=== PATIENT | female | born 1990 | race Caucasian/White ===

== ENCOUNTER 2022-12-15 16:09 | Emergency (ER) | payer BC ==
--- OUTSIDE RECORDS SUMMARY | 2022-12-15 16:11 | XMS REPORT | Continuity of Care Document ---
:1990 Author Organization [facility] Address [address] [place] [address] Dr. Mercer [address] [place] [id number] Care Team Providers Name Role Phone TA Attending Clinician Unavailable Paola Tinajero Attending Clinician [phone] AIRAM Attending Clinician Unavailable TA Admitting Clinician Unavailable AIRAM Admitting Clinician Unavailable Payers Payer Name Policy Type Policy Number Effective Date Expiration Date S mel[place] [id number] 2021 00:00:00 [employer]ET[employer] [id number] 2021 2021 00:00:00 00:00:00 Problems This patient has no known problems. Allergies, Adverse Reactions, Alerts This patient has no known allergies or adverse reactions. Social History Smoking Status Start Date Stop Date Source Never Smoker [facility] Medications Ordered Filled Start Stop Current Ordering Indication Dosage Frequency Signature Comments Components Source Medication Medication Date Date Medication? Clinician (SIG) Name Name B12 1ml IM B12 1ml IM No B12 1ml IM [place] Q week Q week -20 Q week Communi 00:00: ty 00 [facility] B12 1ml IM B12 1ml IM 0 No B12 1ml IM [place] Q week Q week - Q week Communi 00:00: ty 00 [facility] B12 1ml IM B12 1ml IM 0 No B12 1ml IM [place] Q week Q week - Q week Communi 00:00: ty 00 [facility] alprazolam alprazolam No alprazolam [place] 0.25 mg 0.25 mg 1-05 0.25 mg da tablet TAKE tablet TAKE 00:00: tablet [facility] ONE (1) ONE (1) 00 TAKE ONE al TABLET(S) TABLET(S) (1) Healt h BY MOUTH BY MOUTH TABLET(S) Ou treac EVERY EIGHT EVERY EIGHT BY MOUTH h TO TWELVE TO TWELVE EVERY Prog cal HOURS HOURS EIGHT TO NEEDED FOR NEEDED FOR TWELVE ANXIETY. ANXIETY. HOURS NEEDED FOR ANXIETY. prednisolon prednisolon No prednisolo [place] e acetate 1 e acetate 1 ne acetate Communi % eye % eye 1 % eye ty drops,suspe drops,suspe drops,susp Hospita nsion nsion ension l INSTILL ONE INSTILL ONE INSTILL Clinics (1) DROP(S) (1) DROP(S) ONE (1) IN EACH EYE IN EACH EYE DROP(S) IN FOUR TIMES FOUR TIMES EACH EYE A DAY FOR 4 A DAY FOR 4 FOUR TIMES WEEKS, THEN WEEKS, THEN A DAY FOR 4 WEEKS, DIRECTED. DIRECTED. THEN DIRECTED. sulfamethox sulfamethox No sulfametho [place] azole 800 azole 800 xazole 800 [facility]i mg-trimetho mg-trimetho mg-trimeth ty prim 160 mg prim 160 mg oprim 160 Hospita tablet TAKE tablet TAKE mg tablet l 1 TABLET 1 TABLET TAKE 1 Clini cs EVERY 12 EVERY 12 TABLET HOURS BY HOURS BY EVERY 12 ORAL ROUTE ORAL ROUTE HOURS BY FOR 10 FOR 10 ORAL ROUTE DAYS. DAYS. FOR 10 DAYS. testosteron testosteron No 137.5mg testostero [place] e 100 mg e 100 mg ne 100 mg [facility] implant implant implant ty pellet Take pellet Take pellet Hospita 137.5 mg by 137.5 mg by Take 137.5 l implantatio implantatio mg by Clinics n route. n route. implantati on route. Xeomin 100 Xeomin 100 No 32unit( Xeomin 100 [place] unit unit s) unit Communi intramuscul intramuscul intramuscu ty ar solution ar solution lar [facility]ita Inject 32 Inject 32 solution l units by units by Inject 32 Cl inics intramuscul intramuscul units by ar route. ar route. intramuscu lar route. alprazolam alprazolam No alprazolam [place] 0.25 mg 0.25 mg 0.25 mg Commun i tablet TAKE tablet TAKE tablet ty ONE (1) ONE (1) TAKE ONE Hospi ta TABLET(S) TABLET(S) (1) l BY MOUTH BY MOUTH TABLET(S) Cl inics EVERY EVERY BY MOUTH TWELVE TWELVE EVERY HOURS HOURS TWELVE NEEDED FOR NEEDED FOR HOURS ANXIETY. ANXIETY. NEEDED FOR ANXIETY. amoxicillin amoxicillin No amoxicilli [place] 875 mg 875 mg n 875 mg [facility]i tablet TAKE tablet TAKE tablet ty 1 TABLET BY 1 TABLET BY TAKE 1 Hospita MOUTH EVERY MOUTH EVERY TABLET BY l 12 HOURS 12 HOURS MOUTH Clinic s EVERY 12 HOURS amoxicillin amoxicillin No amoxicilli [place] [phone] n 875 Communi mg-potassiu mg-potassiu mg-potassi ty m m um Hospita clavulanate clavulanate clavulanat l 125 mg 125 mg e 125 mg Clinics tablet TAKE tablet TAKE tablet 1 TABLET 1 TABLET TAKE 1 EVERY 12 EVERY 12 TABLET HOURS BY HOURS BY EVERY 12 ORAL ROUTE ORAL ROUTE HOURS BY FOR 10 FOR 10 ORAL ROUTE DAYS. DAYS. FOR 10 DAYS. azithromyci azithromyci No azithromyc [place] n 250 mg n 250 mg in 250 mg [facility] tablet TK 2 tablet TK 2 tablet TK ty TS PO ON TS PO ON 2 TS PO ON H ospita DAY 1, THEN DAY 1, THEN DAY 1, l TK 1 T PO D TK 1 T PO D THEN TK 1 Clinics FOR 4 DAYS FOR 4 DAYS T PO D FOR 4 DAYS benzonatate benzonatate No benzonatat [place] 200 mg 200 mg e 200 mg Communi capsule capsule capsule ty TAKE ONE TAKE ONE TAKE ONE [facility]ino (1) (1) (1) l CAPSULE(S) CAPSULE(S) CAPSULE(S) Clinics BY MOUTH BY MOUTH BY MOUTH THREE TIMES THREE TIMES THREE A DAY. A DAY. TIMES A DAY. Besivance Besivance No Besivance [place] 0.6 % eye 0.6 % eye 0.6 % eye Communi drops,suspe drops,suspe drops,susp ty nsion nsion ension Hospita INSTILL ONE INSTILL ONE INSTILL l (1) DROP(S) (1) DROP(S) ONE (1) Clinics IN EACH EYE IN EACH EYE DROP(S) IN FOUR TIMES FOUR TIMES EACH EYE A DAY A DAY FOUR TIMES STARTING 3 STARTING 3 A DAY DAYS BEFORE DAYS BEFORE STARTING 3 SURGERY. SURGERY. DAYS BEFORE SURGERY. dextroamphe dextroamphe No dextroamph [place] tamine-amph tamine-amph etamine-am Communi etamine 10 etamine 10 phetamine ty mg tablet mg tablet 10 mg Hosp mason TAKE ONE TAKE ONE tablet l (1) (1) TAKE ONE Clinics TABLET(S) TABLET(S) (1) BY MOUTH BY MOUTH TABLET(S) EVERY EVERY BY MOUTH MORNING. MORNING. EVERY MORNING. dicyclomine dicyclomine No dicyclomin [place] 20 mg 20 mg e 20 mg Communi tablet TAKE tablet TAKE tablet ty ONE (1) ONE (1) TAKE ONE Hospi ta TABLET(S) TABLET(S) (1) l BY MOUTH BY MOUTH TABLET(S) Cl inics FOUR TIMES FOUR TIMES BY MOUTH A DAY. A DAY. FOUR TIMES A DAY. docusate docusate No docusate [facility] sodium 100 sodium 100 sodium 100 [facility]i mg capsule mg capsule mg capsule ty TAKE ONE TAKE ONE TAKE ONE [facility] (1) (1) (1) l CAPSULE(S) CAPSULE(S) CAPSULE(S) Clinics BY MOUTH BY MOUTH BY MOUTH TWICE A DAY TWICE A DAY TWICE A NEEDED. NEEDED. DAY NEEDED. famciclovir famciclovir No famciclovi [place] 500 mg 500 mg r 500 mg [facility]i tablet TAKE tablet TAKE tablet ty THREE (3) THREE (3) TAKE THREE Hospita TABLET(S) TABLET(S) (3) l BY MOUTH AT BY MOUTH AT TABLET(S) Clinics FIRST SIGN FIRST SIGN BY MOUTH OF FEVER OF FEVER AT FIRST BLISTER. BLISTER. SIGN OF FEVER BLISTER. Guaiatussin Guaiatussin No Guaiatussi [place] AC 10 AC 10 n AC 10 [facility]i mg-100 mg/5 mg-100 mg/5 mg-100 ty mL oral mL oral mg/5 mL Hospit a liquid TAKE liquid TAKE oral l ONE (1) TO ONE (1) TO liquid C linics TWO (2) TWO (2) TAKE ONE TEASPOONFUL TEASPOONFUL (1) TO TWO (S) BY (S) BY (2) MOUTH EVERY MOUTH EVERY TEASPOONFU SIX HOURS SIX HOURS L(S) BY NEEDED NEEDED MOUTH FOR COUGH. FOR COUGH. EVERY SIX HOURS NEEDED FOR COUGH. ketorolac ketorolac No ketorolac [place] 10 mg 10 mg 10 mg [facility]i tablet TAKE tablet TAKE tablet ty ONE (1) ONE (1) TAKE ONE Hospi ta TABLET(S) TABLET(S) (1) l BY MOUTH BY MOUTH TABLET(S) Cl inics EVERY SIX EVERY SIX BY MOUTH HOURS HOURS EVERY SIX NEEDED FOR NEEDED FOR HOURS PAIN. PAIN. NEEDED FOR PAIN. levofloxaci levofloxaci No levofloxac [place] n 750 mg n 750 mg in 750 mg [facility] tablet TAKE tablet TAKE tablet ty ONE (1) ONE (1) TAKE ONE Hospi ta TABLET(S) TABLET(S) (1) l BY MOUTH BY MOUTH TABLET(S) Cl inics ONCE A DAY. ONCE A DAY. BY MOUTH ONCE A DAY. Lotemax SM Lotemax SM No Lotemax SM [place] 0.38 % eye 0.38 % eye 0.38 % eye Communi gel drops gel drops gel drops ty AFTER AFTER AFTER Hospita SURGERY SURGERY SURGERY l INSTILL 1 INSTILL 1 INSTILL 1 Clinics DROP IN DROP IN DROP IN EACH EYE 4 EACH EYE 4 EACH EYE 4 TIMES A DAY TIMES A DAY TIMES A FOR 1ST FOR 1ST DAY FOR MONTH, THEN MONTH, THEN 1ST MONTH, 3 TIMES A 3 TIMES A THEN 3 DAY FOR 1 DAY FOR 1 TIMES A MONTH,THEN MONTH,THEN DAY FOR 1 TWICE A DAY TWICE A DAY MONTH,THEN FOR 1 FOR 1 TWICE A MONTH, THEN MONTH, THEN DAY FOR 1 ONC ONC MONTH, THEN ONC metronidazo metronidazo No metronidaz [place] le 500 mg le 500 mg ole 500 mg Communi tablet TAKE tablet TAKE tablet ty ONE (1) ONE (1) TAKE ONE Hospi ta TABLET(S) TABLET(S) (1) l BY MOUTH BY MOUTH TABLET(S) Cl inics FOUR TIMES FOUR TIMES BY MOUTH A DAY FOR A DAY FOR FOUR TIMES 10 DAYS. 10 DAYS. A DAY FOR 10 DAYS. Mounjaro Mounjaro No Mounjaro [facility] 2.5 mg/0.5 2.5 mg/0.5 2.5 mg/0.5 Communi mL mL mL ty subcutaneou subcutaneou subcutaneo Hospita s pen s pen us pen l injector injector injector Cli nics INJECT 2.5 INJECT 2.5 INJECT 2.5 MG SUB-Q MG SUB-Q MG SUB-Q EVERY WEEK. EVERY WEEK. EVERY WEEK. ofloxacin ofloxacin No ofloxacin [place] 0.3 % eye 0.3 % eye 0.3 % eye Communi drops drops drops ty INSTILL ONE INSTILL ONE INSTILL Hospita (1) DROP(S) (1) DROP(S) ONE (1) l IN EACH EYE IN EACH EYE DROP(S) IN Clinics FOUR TIMES FOUR TIMES EACH EYE A DAY. A DAY. FOUR TIMES A DAY. ondansetron ondansetron No ondansetro [place] 4 mg 4 mg n 4 mg Communi disintegrat disintegrat disintegra ty ing tablet ing tablet ting [facility] DISSOLVE DISSOLVE tablet l ONE (1) ONE (1) DISSOLVE Clini cs TABLET(S) TABLET(S) ONE (1) BY MOUTH BY MOUTH TABLET(S) EVERY SIX EVERY SIX BY MOUTH HOURS HOURS EVERY SIX NEEDED FOR NEEDED FOR HOURS NAUSEA AND NAUSEA AND NEEDED FOR VOMITING. VOMITING. NAUSEA AND VOMITING. Plenvu 140 Plenvu 140 No Plenvu 140 [place] gram-9 gram-9 gram-9 Communi gram-5.2 gram-5.2 gram-5.2 ty gram powder gram powder gram [facility] packs TAKE packs TAKE powder l DIRECTED DIRECTED packs TAKE Clinics BY BY PHYSICIAN PHYSICIAN DIRECTED OFFICE OFFICE BY PHYSICIAN OFFICE prednisolon prednisolon No prednisolo [place] e acetate 1 e acetate 1 ne acetate Communi % eye % eye 1 % eye ty drops,suspe drops,suspe drops,susp Hospita nsion nsion ension l INSTILL ONE INSTILL ONE INSTILL Clinics (1) DROP(S) (1) DROP(S) ONE (1) IN EACH EYE IN EACH EYE DROP(S) IN FOUR TIMES FOUR TIMES EACH EYE A DAY FOR 4 A DAY FOR 4 FOUR TIMES WEEKS, THEN WEEKS, THEN A DAY FOR 4 WEEKS, DIRECTED. DIRECTED. THEN DIRECTED. sulfamethox sulfamethox No sulfametho [place] azole 800 azole 800 xazole 800 [facility]i mg-trimetho mg-trimetho mg-trimeth ty prim 160 mg prim 160 mg oprim 160 [facility]ospita tablet TAKE tablet TAKE mg tablet l 1 TABLET 1 TABLET TAKE 1 Clini cs EVERY 12 EVERY 12 TABLET HOURS BY HOURS BY EVERY 12 ORAL ROUTE ORAL ROUTE HOURS BY FOR 10 FOR 10 ORAL ROUTE DAYS. DAYS. FOR 10 DAYS. testosteron testosteron No 137.5mg testostero [place] e 100 mg e 100 mg ne 100 mg [facility] implant implant implant ty pellet Take pellet Take pellet Hospita 137.5 mg by 137.5 mg by Take 137.5 l implantatio implantatio mg by Clinics n route. n route. implantati on route. Xeomin 100 Xeomin 100 No 36unit( Xeomin 100 [place] unit unit s) unit Communi intramuscul intramuscul intramuscu ty ar solution ar solution lar [facility] Inject 36 Inject 36 solution l units by units by Inject 36 Cl inics intramuscul intramuscul units by ar route. ar route. intramuscu lar route. alprazolam alprazolam No alprazolam [place] 0.25 mg 0.25 mg 0.25 mg Commun i tablet TAKE tablet TAKE tablet ty ONE (1) ONE (1) TAKE ONE Hospi ta TABLET(S) TABLET(S) (1) l BY MOUTH BY MOUTH TABLET(S) Cl inics EVERY EVERY BY MOUTH TWELVE TWELVE EVERY HOURS HOURS TWELVE NEEDED FOR NEEDED FOR HOURS ANXIETY. ANXIETY. NEEDED FOR ANXIETY. amoxicillin amoxicillin No amoxicilli [place] 875 mg 875 mg n 875 mg Communi tablet TAKE tablet TAKE tablet ty 1 TABLET BY 1 TABLET BY TAKE 1 Hospita MOUTH EVERY MOUTH EVERY TABLET BY l 12 HOURS 12 HOURS MOUTH Clinic s EVERY 12 HOURS amoxicillin amoxicillin No amoxicilli [place] 875 875 n 875 Communi mg-potassiu mg-potassiu mg-potassi ty m m um Hospita clavulanate clavulanate clavulanat l 125 mg 125 mg e 125 mg Clinics tablet TAKE tablet TAKE tablet 1 TABLET 1 TABLET TAKE 1 EVERY 12 EVERY 12 TABLET HOURS BY HOURS BY EVERY 12 ORAL ROUTE ORAL ROUTE HOURS BY FOR 10 FOR 10 ORAL ROUTE DAYS. DAYS. FOR 10 DAYS. azithromyci azithromyci No azithromyc [place] n 250 mg n 250 mg in 250 mg [facility] tablet TK 2 tablet TK 2 tablet TK ty TS PO ON TS PO ON 2 TS PO ON [facility]spita DAY 1, THEN DAY 1, THEN DAY 1, l TK 1 T PO D TK 1 T PO D THEN TK 1 Clinics FOR 4 DAYS FOR 4 DAYS T PO D FOR 4 DAYS benzonatate benzonatate No benzonatat [place] 200 mg 200 mg e 200 mg Communi capsule capsule capsule ty TAKE ONE TAKE ONE TAKE ONE [facility] (1) (1) (1) l CAPSULE(S) CAPSULE(S) CAPSULE(S) Clinics BY MOUTH BY MOUTH BY MOUTH THREE TIMES THREE TIMES THREE A DAY. A DAY. TIMES A DAY. Besivance Besivance No Besivance [place] 0.6 % eye 0.6 % eye 0.6 % eye Communi drops,suspe drops,suspe drops,susp ty nsion nsion ension Hospita INSTILL ONE INSTILL ONE INSTILL l (1) DROP(S) (1) DROP(S) ONE (1) Clinics IN EACH EYE IN EACH EYE DROP(S) IN FOUR TIMES FOUR TIMES EACH EYE A DAY A DAY FOUR TIMES STARTING 3 STARTING 3 A DAY DAYS BEFORE DAYS BEFORE STARTING 3 SURGERY. SURGERY. DAYS BEFORE SURGERY. dextroamphe dextroamphe No dextroamph [place] tamine-amph tamine-amph etamine-am Communi etamine 10 etamine 10 phetamine ty mg tablet mg tablet 10 mg [facility]osp mason TAKE ONE TAKE ONE tablet l (1) (1) TAKE ONE Clinics TABLET(S) TABLET(S) (1) BY MOUTH BY MOUTH TABLET(S) EVERY EVERY BY MOUTH MORNING. MORNING. EVERY MORNING. dicyclomine dicyclomine No dicyclomin [place] 20 mg 20 mg e 20 mg [facility]i tablet TAKE tablet TAKE tablet ty ONE (1) ONE (1) TAKE ONE Hospi ta TABLET(S) TABLET(S) (1) l BY MOUTH BY MOUTH TABLET(S) Cl inics FOUR TIMES FOUR TIMES BY MOUTH A DAY. A DAY. FOUR TIMES A DAY. docusate docusate No docusate [facility] sodium 100 sodium 100 sodium 100 [facility]i mg capsule mg capsule mg capsule ty TAKE ONE TAKE ONE TAKE ONE [facility] (1) (1) (1) l CAPSULE(S) CAPSULE(S) CAPSULE(S) Clinics BY MOUTH BY MOUTH BY MOUTH TWICE A DAY TWICE A DAY TWICE A NEEDED. NEEDED. DAY NEEDED. famciclovir famciclovir No famciclovi [place] 500 mg 500 mg r 500 mg [facility] tablet TAKE tablet TAKE tablet ty THREE (3) THREE (3) TAKE THREE Hospita TABLET(S) TABLET(S) (3) l BY MOUTH AT BY MOUTH AT TABLET(S) Clinics FIRST SIGN FIRST SIGN BY MOUTH OF FEVER OF FEVER AT FIRST BLISTER. BLISTER. SIGN OF FEVER BLISTER. Guaiatussin Guaiatussin No Guaiatussi [place] AC 10 AC 10 n AC 10 [facility]i mg-100 mg/5 mg-100 mg/5 mg-100 ty mL oral mL oral mg/5 mL Hospit a liquid TAKE liquid TAKE oral l ONE (1) TO ONE (1) TO liquid C linics TWO (2) TWO (2) TAKE ONE TEASPOONFUL TEASPOONFUL (1) TO TWO (S) BY (S) BY (2) MOUTH EVERY MOUTH EVERY TEASPOONFU SIX HOURS SIX HOURS L(S) BY NEEDED NEEDED MOUTH FOR COUGH. FOR COUGH. EVERY SIX HOURS NEEDED FOR COUGH. ketorolac ketorolac No ketorolac [place] 10 mg 10 mg 10 mg [facility] tablet TAKE tablet TAKE tablet ty ONE (1) ONE (1) TAKE ONE Hospi ta TABLET(S) TABLET(S) (1) l BY MOUTH BY MOUTH TABLET(S) Cl inics EVERY SIX EVERY SIX BY MOUTH HOURS HOURS EVERY SIX NEEDED FOR NEEDED FOR HOURS PAIN. PAIN. NEEDED FOR PAIN. levofloxaci levofloxaci No levofloxac [place] n 750 mg n 750 mg in 750 mg [facility] tablet TAKE tablet TAKE tablet ty ONE (1) ONE (1) TAKE ONE Hospi ta TABLET(S) TABLET(S) (1) l BY MOUTH BY MOUTH TABLET(S) Cl inics ONCE A DAY. ONCE A DAY. BY MOUTH ONCE A DAY. Lotemax SM Lotemax SM No Lotemax SM [place] 0.38 % eye 0.38 % eye 0.38 % eye Communi gel drops gel drops gel drops ty AFTER AFTER AFTER Hospita SURGERY SURGERY SURGERY l INSTILL 1 INSTILL 1 INSTILL 1 Clinics DROP IN DROP IN DROP IN EACH EYE 4 EACH EYE 4 EACH EYE 4 TIMES A DAY TIMES A DAY TIMES A FOR 1ST FOR 1ST DAY FOR MONTH, THEN MONTH, THEN 1ST MONTH, 3 TIMES A 3 TIMES A THEN 3 DAY FOR 1 DAY FOR 1 TIMES A MONTH,THEN MONTH,THEN DAY FOR 1 TWICE A DAY TWICE A DAY MONTH,THEN FOR 1 FOR 1 TWICE A MONTH, THEN MONTH, THEN DAY FOR 1 ONC ONC MONTH, THEN ONC metronidazo metronidazo No metronidaz [place] le 500 mg le 500 mg ole 500 mg Communi tablet TAKE tablet TAKE tablet ty ONE (1) ONE (1) TAKE ONE Hospi ta TABLET(S) TABLET(S) (1) l BY MOUTH BY MOUTH TABLET(S) Cl inics FOUR TIMES FOUR TIMES BY MOUTH A DAY FOR A DAY FOR FOUR TIMES 10 DAYS. 10 DAYS. A DAY FOR 10 DAYS. Mounjaro Mounjaro No Mounjaro [facility] 2.5 mg/0.5 2.5 mg/0.5 2.5 mg/0.5 Communi mL mL mL ty subcutaneou subcutaneou subcutaneo Hospita s pen s pen us pen l injector injector injector Cli nics INJECT 2.5 INJECT 2.5 INJECT 2.5 MG SUB-Q MG SUB-Q MG SUB-Q EVERY WEEK. EVERY WEEK. EVERY WEEK. ofloxacin ofloxacin No ofloxacin [place] 0.3 % eye 0.3 % eye 0.3 % eye Communi drops drops drops ty INSTILL ONE INSTILL ONE INSTILL Hospita (1) DROP(S) (1) DROP(S) ONE (1) l IN EACH EYE IN EACH EYE DROP(S) IN Clinics FOUR TIMES FOUR TIMES EACH EYE A DAY. A DAY. FOUR TIMES A DAY. ondansetron ondansetron No ondansetro [place] 4 mg 4 mg n 4 mg Communi disintegrat disintegrat disintegra ty ing tablet ing tablet ting [facility] DISSOLVE DISSOLVE tablet l ONE (1) ONE (1) DISSOLVE Clini cs TABLET(S) TABLET(S) ONE (1) BY MOUTH BY MOUTH TABLET(S) EVERY SIX EVERY SIX BY MOUTH HOURS HOURS EVERY SIX NEEDED FOR NEEDED FOR HOURS NAUSEA AND NAUSEA AND NEEDED FOR VOMITING. VOMITING. NAUSEA AND VOMITING. Plenvu 140 Plenvu 140 No Plenvu 140 [place] gram-9 gram-9 gram-9 Communi gram-5.2 gram-5.2 gram-5.2 ty gram powder gram powder gram [facility] packs TAKE packs TAKE powder l DIRECTED DIRECTED packs TAKE Clinics BY BY PHYSICIAN PHYSICIAN DIRECTED OFFICE OFFICE BY PHYSICIAN OFFICE prednisolon prednisolon No prednisolo [place] e acetate 1 e acetate 1 ne acetate Communi % eye % eye 1 % eye ty drops,suspe drops,suspe drops,susp Hospita nsion nsion ension l INSTILL ONE INSTILL ONE INSTILL Clinics (1) DROP(S) (1) DROP(S) ONE (1) IN EACH EYE IN EACH EYE DROP(S) IN FOUR TIMES FOUR TIMES EACH EYE A DAY FOR 4 A DAY FOR 4 FOUR TIMES WEEKS, THEN WEEKS, THEN A DAY FOR 4 WEEKS, DIRECTED. DIRECTED. THEN DIRECTED. sulfamethox sulfamethox No sulfametho [place] azole 800 azole 800 xazole 800 [facility]i mg-trimetho mg-trimetho mg-trimeth ty prim 160 mg prim 160 mg oprim 160 [facility]ospita tablet TAKE tablet TAKE mg tablet l 1 TABLET 1 TABLET TAKE 1 Clini cs EVERY 12 EVERY 12 TABLET HOURS BY HOURS BY EVERY 12 ORAL ROUTE ORAL ROUTE HOURS BY FOR 10 FOR 10 ORAL ROUTE DAYS. DAYS. FOR 10 DAYS. testosteron testosteron No 137.5mg testostero [place] e 100 mg e 100 mg ne 100 mg [facility] implant implant implant ty pellet Take pellet Take pellet Hospita 137.5 mg by 137.5 mg by Take 137.5 l implantatio implantatio mg by Clinics n route. n route. implantati on route. Xeomin 100 Xeomin 100 No 36unit( Xeomin 100 [place] unit unit s) unit Communi intramuscul intramuscul intramuscu ty ar solution ar solution lar [facility] Inject 36 Inject 36 solution l units by units by Inject 36 Cl inics intramuscul intramuscul units by ar route. ar route. intramuscu lar route. alprazolam alprazolam No alprazolam [place] 0.25 mg 0.25 mg 0.25 mg Commun i tablet TAKE tablet TAKE tablet ty ONE (1) ONE (1) TAKE ONE Hos[facility] ta TABLET(S) TABLET(S) (1) l BY MOUTH BY MOUTH TABLET(S) Cl inics EVERY EVERY BY MOUTH TWELVE TWELVE EVERY HOURS HOURS TWELVE NEEDED FOR NEEDED FOR HOURS ANXIETY. ANXIETY. NEEDED FOR ANXIETY. amoxicillin amoxicillin No amoxicilli [place] 875 mg 875 mg n 875 mg [facility]i tablet TAKE tablet TAKE tablet ty 1 TABLET BY 1 TABLET BY TAKE 1 Hospita MOUTH EVERY MOUTH EVERY TABLET BY l 12 HOURS 12 HOURS MOUTH Clinic s EVERY 12 HOURS amoxicillin amoxicillin No amoxicilli [place] 875 875 n 875 Communi mg-potassiu mg-potassiu mg-potassi ty m m um Hospita clavulanate clavulanate clavulanat l 125 mg 125 mg e 125 mg Clinics tablet TAKE tablet TAKE tablet 1 TABLET 1 TABLET TAKE 1 EVERY 12 EVERY 12 TABLET HOURS BY HOURS BY EVERY 12 ORAL ROUTE ORAL ROUTE HOURS BY FOR 10 FOR 10 ORAL ROUTE DAYS. DAYS. FOR 10 DAYS. azithromyci azithromyci No azithromyc [place] n 250 mg n 250 mg in 250 mg [facility] tablet TK 2 tablet TK 2 tablet TK ty TS PO ON TS PO ON 2 TS PO ON [facility] DAY 1, THEN DAY 1, THEN DAY 1, l TK 1 T PO D TK 1 T PO D THEN TK 1 Clinics FOR 4 DAYS FOR 4 DAYS T PO D FOR 4 DAYS benzonatate benzonatate No benzonatat [place] 200 mg 200 mg e 200 mg [facility]i capsule capsule capsule ty TAKE ONE TAKE ONE TAKE ONE [facility] (1) (1) (1) l CAPSULE(S) CAPSULE(S) CAPSULE(S) Clinics BY MOUTH BY MOUTH BY MOUTH THREE TIMES THREE TIMES THREE A DAY. A DAY. TIMES A DAY. Besivance Besivance No Besivance [place] 0.6 % eye 0.6 % eye 0.6 % eye Communi drops,suspe drops,suspe drops,susp ty nsion nsion ension Hospita INSTILL ONE INSTILL ONE INSTILL l (1) DROP(S) (1) DROP(S) ONE (1) Clinics IN EACH EYE IN EACH EYE DROP(S) IN FOUR TIMES FOUR TIMES EACH EYE A DAY A DAY FOUR TIMES STARTING 3 STARTING 3 A DAY DAYS BEFORE DAYS BEFORE STARTING 3 SURGERY. SURGERY. DAYS BEFORE SURGERY. dextroamphe dextroamphe No dextroamph [place] tamine-amph tamine-amph etamine-am Communi etamine 10 etamine 10 phetamine ty mg tablet mg tablet 10 mg [facility] TAKE ONE TAKE ONE tablet l (1) (1) TAKE ONE Clinics TABLET(S) TABLET(S) (1) BY MOUTH BY MOUTH TABLET(S) EVERY EVERY BY MOUTH MORNING. MORNING. EVERY MORNING. dicyclomine dicyclomine No dicyclomin [place] 20 mg 20 mg e 20 mg [facility]i tablet TAKE tablet TAKE tablet ty ONE (1) ONE (1) TAKE ONE Hospi ta TABLET(S) TABLET(S) (1) l BY MOUTH BY MOUTH TABLET(S) Cl inics FOUR TIMES FOUR TIMES BY MOUTH A DAY. A DAY. FOUR TIMES A DAY. docusate docusate No docusate [facility] sodium 100 sodium 100 sodium 100 [facility]i mg capsule mg capsule mg capsule ty TAKE ONE TAKE ONE TAKE ONE [facility] (1) (1) (1) l CAPSULE(S) CAPSULE(S) CAPSULE(S) Clinics BY MOUTH BY MOUTH BY MOUTH TWICE A DAY TWICE A DAY TWICE A NEEDED. NEEDED. DAY NEEDED. famciclovir famciclovir No famciclovi [place] 500 mg 500 mg r 500 mg Communi tablet TAKE tablet TAKE tablet ty THREE (3) THREE (3) TAKE THREE Hospita TABLET(S) TABLET(S) (3) l BY MOUTH AT BY MOUTH AT TABLET(S) Clinics FIRST SIGN FIRST SIGN BY MOUTH OF FEVER OF FEVER AT FIRST BLISTER. BLISTER. SIGN OF FEVER BLISTER. Guaiatussin Guaiatussin No Guaiatussi [place] AC 10 AC 10 n AC 10 Communi mg-100 mg/5 mg-100 mg/5 mg-100 ty mL oral mL oral mg/5 mL Hospit a liquid TAKE liquid TAKE oral l ONE (1) TO ONE (1) TO liquid C linics TWO (2) TWO (2) TAKE ONE TEASPOONFUL TEASPOONFUL (1) TO TWO (S) BY (S) BY (2) MOUTH EVERY MOUTH EVERY TEASPOONFU SIX HOURS SIX HOURS L(S) BY NEEDED NEEDED MOUTH FOR COUGH. FOR COUGH. EVERY SIX HOURS NEEDED FOR COUGH. ketorolac ketorolac No ketorolac [place] 10 mg 10 mg 10 mg [facility]i tablet TAKE tablet TAKE tablet ty ONE (1) ONE (1) TAKE ONE Hospi ta TABLET(S) TABLET(S) (1) l BY MOUTH BY MOUTH TABLET(S) Cl inics EVERY SIX EVERY SIX BY MOUTH HOURS HOURS EVERY SIX NEEDED FOR NEEDED FOR HOURS PAIN. PAIN. NEEDED FOR PAIN. levofloxaci levofloxaci No levofloxac [place] n 750 mg n 750 mg in 750 mg [facility] tablet TAKE tablet TAKE tablet ty ONE (1) ONE (1) TAKE ONE Hospi ta TABLET(S) TABLET(S) (1) l BY MOUTH BY MOUTH TABLET(S) Cl inics ONCE A DAY. ONCE A DAY. BY MOUTH ONCE A DAY. Lotemax SM Lotemax SM No Lotemax SM [place] 0.38 % eye 0.38 % eye 0.38 % eye Communi gel drops gel drops gel drops ty AFTER AFTER AFTER Hospita SURGERY SURGERY SURGERY l INSTILL 1 INSTILL 1 INSTILL 1 Clinics DROP IN DROP IN DROP IN EACH EYE 4 EACH EYE 4 EACH EYE 4 TIMES A DAY TIMES A DAY TIMES A FOR 1ST FOR 1ST DAY FOR MONTH, THEN MONTH, THEN 1ST MONTH, 3 TIMES A 3 TIMES A THEN 3 DAY FOR 1 DAY FOR 1 TIMES A MONTH,THEN MONTH,THEN DAY FOR 1 TWICE A DAY TWICE A DAY MONTH,THEN FOR 1 FOR 1 TWICE A MONTH, THEN MONTH, THEN DAY FOR 1 ONC ONC MONTH, THEN ONC metronidazo metronidazo No metronidaz [place] le 500 mg le 500 mg ole 500 mg Communi tablet TAKE tablet TAKE tablet ty ONE (1) ONE (1) TAKE ONE Hospi ta TABLET(S) TABLET(S) (1) l BY MOUTH BY MOUTH TABLET(S) Cl inics FOUR TIMES FOUR TIMES BY MOUTH A DAY FOR A DAY FOR FOUR TIMES 10 DAYS. 10 DAYS. A DAY FOR 10 DAYS. ofloxacin ofloxacin No ofloxacin [place] 0.3 % eye 0.3 % eye 0.3 % eye [facility] drops drops drops ty INSTILL ONE INSTILL ONE INSTILL Hospita (1) DROP(S) (1) DROP(S) ONE (1) l IN EACH EYE IN EACH EYE DROP(S) IN Clinics FOUR TIMES FOUR TIMES EACH EYE A DAY. A DAY. FOUR TIMES A DAY. ondansetron ondansetron No ondansetro [place] 4 mg 4 mg n 4 mg Communi disintegrat disintegrat disintegra ty ing tablet ing tablet ting Hos al[facility]ino DISSOLVE DISSOLVE tablet l ONE (1) ONE (1) DISSOLVE Clini cs TABLET(S) TABLET(S) ONE (1) BY MOUTH BY MOUTH TABLET(S) EVERY SIX EVERY SIX BY MOUTH HOURS HOURS EVERY SIX NEEDED FOR NEEDED FOR HOURS NAUSEA AND NAUSEA AND NEEDED FOR VOMITING. VOMITING. NAUSEA AND VOMITING. Plenvu 140 Plenvu 140 No Plenvu 140 [place] gram-9 gram-9 gram-9 Communi gram-5.2 gram-5.2 gram-5.2 ty gram powder gram powder gram H ospita packs TAKE packs TAKE powder l DIRECTED DIRECTED packs TAKE Clinics BY BY PHYSICIAN PHYSICIAN DIRECTED OFFICE OFFICE BY PHYSICIAN OFFICE Vital Signs Vital Name Observation Time Observation Value Comments Source BP Diastolic 2020-12-13 00:00:00 89 mm[Hg] [facility] Height 2020-12-13 00:00:00 63 [in_i] [facility] BMI (Body Mass 2020-12-13 00:00:00 29.9 kg/m2 [facility] 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 Taoist Index) Health Outreach Program BP Systolic 2020-12-13 00:00:00 132 mm[Hg] [facility] Body Weight 2020-12-13 00:00:00 169 [lb_av] [facility] BP Diastolic 2020-11-07 00:00:00 75 mm[Hg] [facility] Height 2020-11-07 00:00:00 63 [in_i] [facility] BMI (Body Mass 2020-11-07 00:00:00 31.2 kg/m2 [facility] 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 Taoist Index) Health Outreach Program BP Systolic 2020-11-07 00:00:00 109 mm[Hg] [facility] Body Weight 2020-11-07 00:00:00 176 [lb_av] [facility] Procedures Procedure Date / Time Performed Performing Clinician [facility] Procedure Roll [facility] Encounters Start End Encounter Admission Attending Care Care Encounter Source Date/Time Date/Time Type Type Clinicians Facility Department ID 2022-12-12 2022-12-12 [facility] [place] [id number] [place] 00:00:00 00:00:00 [place], [facility] Comm uni MSN, INSURANCE JOB TITLES, Hospital - ty MODEL DRESSER-C: [address] [place] [facility] [address] [facility], Clinic s [address], [place] [address], [place], [place] MSN, MODEL DRESSER-C [id number] , Ph. 2022-11-15 2022-11-15 Outpatient SISSON_C [facility] 2022 [place] 00:00:00 00:00:00 [id number] [facility] i [facility] 2022-11-15 2022-11-15 [facility] [place] 13 [place] 00:00:00 00:00:00 Lior [facility] Comm uni MSN, INSURANCE JOB TITLES, Hospital - ty MODEL DRESSER-C: [address] [place] [facility] [address], [place] [address], [place], [place] MSN, MODEL DRESSER-C [id number] , Ph. 2022-11-03 2022-11-03 Outpatient SISSON_[facility] 2022 [place] 00:00:00 00:00:00 [id number] Commun i ty H[facility] 2022-09-10 2022-09-10 Outpatient SISSON_[facility] [id number] [place] 00:00:00 00:00:00 [id number] Commun i ty Hospita [facility] 2022-09-10 2022-09-10 [facility] [place] [id number] [place] 00:00:00 00:00:00 Lior [facility] Comm uni MSN, INSURANCE JOB TITLES, Hospital - ty MODEL DRESSER-C: [address] [place] [facility]. [facility], Clinic s [address], [place] [address], [place] MSN, MODEL DRESSER-C [id number] , Ph. 2022-06-26 2022-06-26 Outpatient SISSON_C [facility] 2021 [place] 00:00:00 00:00:00 [id number] [facility] i ty Hosp[facility] Clinics 2022-06-26 2022-06-26 Outpatient Lior [facility] [id number] 00:00:00 00:00:00 [place] [id number] 2022-04-09 2022-04-09 Outpatient LIOR_C [facility] 2021 [place] 01:26:00 01:26:00 [id number] [facility] i ty [facility] Clinics 2022-04-09 2022-04-09 Outpatient Lior [facility] [id number] 00:00:00 00:00:00 [place] [id number] 2022-02-26 2022-02-26 Outpatient LIOR_C [facility] 2021 [place] 03:33:00 03:33:00 [id number] Commun i ty Hosp[facility] Clinics 2022-02-20 2022-02-20 Outpatient LIOR_C [facility] 2021 [place] 06:02:00 06:02:00 0420 Commun i ty Hosp[facility] Clinics 2022-02-20 2022-02-20 Outpatient Lior [facility] [id number] 00:00:00 00:00:00 [place] [id number] 2021-11-16 2021-11-16 Outpatient TREVOR_SUHA [facility] [id number] [place] 11:46:00 11:46:00 SSA [id number] da [facility] 2021-03-22 2021-03-22 Outpatient SISSON_C [facility] 2020 [place] 02:30:00 02:30:00 0520 Commun i ty Hospita [facility] Clinics 2021-03-22 2021-03-22 Outpatient Lior [facility] [id number] 00:00:00 00:00:00 [place] [id number] 2020-12-13 2020-12-13 Outpatient LISTER_MELI [facility] ME[facility] [id number] [place] 02:26:00 02:26:00 SSA [id number] [facility] 2020-12-13 2020-12-13 Kirsten URIOSTEGUI [place] - [id number] [place] 00:00:00 00:00:00 Katrina Mendoza, Taoist Ep[place] p RIGHT OF [address] AGENT: [address], [place] [phone] Progr am , Ph. 2020-11-14 2020-11-14 Outpatient LISTER_MELI MEHOP MEHOP [id number] [place] 11:47:00 11:47:00 SSA [id number] [facility] 2020-11-07 2020-11-07 Outpatient LISTER_MELI MEHOP MEHOP 112 [place] 04:46:00 04:46:00 SSA [id number] [facility] 2020-11-07 2020-11-07 Kirsten URIOSTEGUI [place] - [id number] [place] 00:00:00 00:00:00 Katrina Mendoza, Taoist Ep[place] p [address] AGENT: [address], [place] [phone] Progr am , Ph. 2020-11-05 2020-11-05 Outpatient LISTER_MELI MEHOP MEHOP 112 [place] 12:37:00 12:37:00 SSA [id number] [facility] 2020-10-30 2020-10-30 Outpatient LISTER_MELI MEHOP MEHOP [id number] [place] 11:36:00 11:36:00 SSA [id number] [facility] Results This patient has no known results.
[2022-12-15 16:33] LABS: Urine Blood Negative (Negative); Urine Glucose Negative (Negative); Urine Protein Negative (Negative); Urine pH 6.5 (5.0-7.0)
[2022-12-15] MEDS ORDERED: NA CHLORIDE 0.9% 0 ML ONE (16:56)
[2022-12-15] MEDS ORDERED: KETOROLAC 30 MG/ML INJ ONE (16:56)
[2022-12-15 17:10] LABS: Absolute Lymphocytes (CBC) 2.2 K/uL (0.7-4.9); Hematocrit 40.4 % (36.0-45.0); Lymphocytes % 35.1 % (15.3-44.8); MCV 91.3 fL (80-100); MPV 7.4 fL (7.6-11.3); RBC Red Blood Cell Count 4.43 M/uL (3.86-4.86)
[2022-12-15 17:18] LABS: Urine Bacteria <20 /HPF (<20); Urine RBC <5 /HPF (None Seen)
[2022-12-15 17:28] LABS: Albumin 4.3 g/dL (3.4-5.0); Bilirubin Total 0.6 mg/dL (0.2-1.0); Potassium 3.7 mmol/L (3.5-5.1); Protein, Total 7.3 g/dL (6.4-8.2)
--- NOTE | 2022-12-15 17:39 | RAD REPORT ---
EXAM DESCRIPTION: CTAbdomen Pelvis W Contrast - 12/15/2022 5:31 pm CLINICAL HISTORY: Abdominal pain. ABD PAIN COMPARISON: No comparisons TECHNIQUE: Biphasic CT imaging of the abdomen and pelvis was performed with 100 ml non-ionic IV cont rast. All CT scans are performed using dose optimization technique as appropriate and may include automated exposure control or mA/KV adjustment according to patient size. FINDINGS: The lung bases are clear. The liver, spleen, pancreas, adrenal glands and kidneys are within normal limits. No bowel obstruction, free air, free fluid or abscess. Significant retained stool throughout the colo n. Mild sigmoid diverticulosis coli without diverticulitis. The appendix is normal. No evidence of s ignificant lymphadenopathy. No suspicious bony findings. IUD is present in the uterus. IMPRESSION: No acute intra-abdominal or pelvic finding. Significant stool is retained throughout the colon. Mild sigmoid diverticulosis coli without divertic ulitis.
[2022-12-15] MEDS ORDERED: NA CHLORIDE 0.9% 1,000 ML ONE (18:02)
--- NOTE | 2022-12-15 18:35 | RAD REPORT ---
EXAM DESCRIPTION: US - Transvaginal Study Probe - 12/15/2022 6:29 pm CLINICAL HISTORY: ABD PAIN Pelvic pain. COMPARISON: No comparisons FINDINGS: The uterus is normal in size, shape and echotexture. The uterus measures 6.7 x 4.1 x 2.8 c m IUD is seen in the fundal endometrium. Both ovaries are normal in size, shape and echotexture. The right ovary measures 3.5 x 2.6 cm. The left ovary measures 3.1 x 2.5 cm. No ovarian or parovarian lesions. No adnexal masses. Normal Doppler blood flow was demonstrated to both ovaries. No significant pelvic ascites. IMPRESSION: IUD is in the endometrium fundal region, appropriate placement.
--- NOTE | 2022-12-15 18:49 | ER ---
Nurse's Notes [facility] Name: Winnie Guevara Age: 32 yrs Sex: Female : 1990 Arrival Date: 12/15/2022 Time: 16:19 Bed 13 Private MD: Diagnosis: Constipation;Diverticulosis of large intestine without perforation or abscess without bleeding;Lower abdominal pain, unspecified Presentation: 12/15 16:30 Chief complaint: Patient states: RLQ abd pain. Ebola Screen: Patient denies travel to [facility] an Ebola-affected area in the 21 days before illness onset. Initial Sepsis Screen: Does the patient meet any 2 criteria? No. Patient's initial sepsis screen is negative. Does the patient have a suspected source of infection? Yes: Acute abdominal pain. Risk Assessment: Do you want to hurt yourself or someone else? Patient reports no desire to harm self or others. 16:30 Acuity: ANGELO 3 ll1 16:30 Method Of Arrival: Ambulatory [facility] Historical: - Allergies: 16:30 No Known Allergies; eh3 - Immunization history:: Adult Immunizations up to date. - Social history:: Smoking status: Patient denies any tobacco usage or history of. Patient uses alcohol, weekly. Screenin:30 [facility] ED Fall Risk Assessment (Adult) Score/Fall Risk Level 0 - 2 = Low Risk. Abuse eh3 screen: Denies threats or abuse. Denies injuries from another. Nutritional screening: No deficits noted. Tuberculosis screening: No symptoms or risk factors identified. Assessment: 16:30 General: Appears in no apparent distress. uncomfortable, Behavior is calm, cooperative, eh3 appropriate for age. Pain: Complains of pain in right lower quadrant Pain began 1 day ago. Neuro: Level of Consciousness is awake, alert, obeys commands, Oriented to person, place, time, situation. Cardiovascular: Capillary refill < 3 seconds Patient's skin is warm and dry. Respiratory: Airway is patent Respiratory effort is even, unlabored, Respiratory pattern is regular, symmetrical. GI: Abdomen is round non-distended, Bowel sounds present X 4 quads. Abd is soft X 4 quads Abdomen is tender to palpation in right lower quadrant. : No signs and/or symptoms were reported regarding the genitourinary system. EENT: No signs and/or symptoms were reported regarding the EENT system. Derm: No signs and/or symptoms reported regarding the dermatologic system. Skin is dry, Skin is pale, Skin temperature is warm. Musculoskeletal: Circulation, motion, and sensation intact. Range of motion: intact in all extremities. Vital Signs: 16:30 BP 121 / 90; Pulse 72; Resp 18; Pulse Ox 100% on R/A; eh3 17:00 BP 114 / 70; Pulse 72; Resp 18; Pulse Ox 100% on R/A; 3 ED Course: 16:19 Patient arrived in ED. eh3 16:20 Becky Silva FNP-C is PHCP. snw 16:20 Frank Jones MD is Attending Physician. snw 16:30 Patient has correct armband on for positive identification. Bed in low position. Call 3 light in reach. Side rails up X2. Adult w/ patient. Pulse ox on. NIBP on. Door closed. Noise minimized. Lights dimmed. 16:40 Simran Anton, RN is Primary Nurse. 3 17:02 CBC with Diff Sent. 6 17:02 CMP Sent. bc6 17:02 Lipase Sent. bc6 17:02 Urine Microscopic Only Sent. bc6 17:03 Inserted saline lock: 20 gauge in right antecubital area, using aseptic technique. bc6 18:30 Triage completed. 1 Administered Medications: 14:00 Drug: TORadol - (ketorolac) 15 mg Route: IVP; Site: right antecubital; 3 17:00 Drug: NS 0.9% 1000 ml Route: IV; Rate: 1 bolus; Site: right antecubital; 3 Outcome: 18:48 Discharge ordered by . snw 19:03 Patient left the ED. 3 Signatures: Becky Silva FNP-C [employer]Cs[employer] Emelia Wellington RN RN 1 Simran Anton, SOPHIE RN 3 Stephanie Ochoa [facility] Corrections: (The following items were deleted from the chart) 17:45 17:44 Allergies: No Known Allergies; 3 3 17:45 17:44 Immunization history: Adult Immunizations up to date, 3 3 17:45 17:44 Social history: Smoking status: Patient denies any tobacco usage or history of. 3 Patient uses alcohol, weekly. 3
--- NOTE | 2022-12-15 18:49 | EDPHYS ---
Physician Documentation [facility] Name: Winnie Guevara Age: 32 yrs Sex: Female : 1990 Arrival Date: 12/15/2022 Time: 16:19 Bed 13 Private MD: ED Physician Frank Jones HPI: 12/15 16:32 This 32 yrs old Female presents to ER via Unassigned with complaints of abdominal pain, snw syncope. 16:32 The patient presents with abdominal pain right lower quadrant. Onset: The snw symptoms/episode began/occurred acutely. The symptoms do not radiate. Associated signs and symptoms: Pertinent positives: syncope x 1, near syncope and diaphoresis x 1. The symptoms are described as steady. Severity of pain: At its worst the pain was severe in the emergency department the pain has improved moderately. The patient has not experienced similar symptoms in the past. The patient has not recently seen a physician. recent 17 pound wt loss. Historical: - Allergies: 16:30 No Known Allergies; eh3 - Immunization history:: Adult Immunizations up to date. - Social history:: Smoking status: Patient denies any tobacco usage or history of. Patient uses alcohol, weekly. ROS: 16:34 Constitutional: Negative for fever, chills, and weight loss, Eyes: Negative for injury, snw pain, redness, and discharge, ENT: Negative for injury, pain, and discharge, Neck: Negative for injury, pain, and swelling, Cardiovascular: Negative for chest pain, palpitations, and edema, Respiratory: Negative for shortness of breath, cough, wheezing, and pleuritic chest pain, Back: Negative for injury and pain, : Negative for injury, bleeding, discharge, and swelling, MS/Extremity: Negative for injury and deformity, Skin: Negative for injury, rash, and discoloration. 16:34 Abdomen/GI: Positive for abdominal pain, of the right lower quadrant. 16:34 Neuro: Positive for syncope, near syncope. Exam: 16:34 Constitutional: This is a well developed, well nourished patient who is awake, alert, snw and in no acute distress. Head/Face: Normocephalic, atraumatic. Eyes: Pupils equal round and reactive to light, extra-ocular motions intact. Lids and lashes normal. Conjunctiva and sclera are non-icteric and not injected. Cornea within normal limits. Periorbital areas with no swelling, redness, or edema. ENT: Nares patent. No nasal discharge, no septal abnormalities noted. Tympanic membranes are normal and external auditory canals are clear. Oropharynx with no redness, swelling, or masses, exudates, or evidence of obstruction, uvula midline. Mucous membranes moist. Neck: Trachea midline, no thyromegaly or masses palpated, and no cervical lymphadenopathy. Supple, full range of motion without nuchal rigidity, or vertebral point tenderness. No Meningismus. Chest/axilla: Normal chest wall appearance and motion. Nontender with no deformity. No lesions are appreciated. Cardiovascular: Regular rate and rhythm with a normal S1 and S2. No gallops, murmurs, or rubs. Normal PMI, no JVD. No pulse deficits. Respiratory: Lungs have equal breath sounds bilaterally, clear to auscultation and percussion. No rales, rhonchi or wheezes noted. No increased work of breathing, no retractions or nasal flaring. Back: No spinal tenderness. No costovertebral tenderness. Full range of motion. Skin: Warm, dry with normal turgor. Normal color with no rashes, no lesions, and no evidence of cellulitis. MS/ Extremity: Pulses equal, no cyanosis. Neurovascular intact. Full, normal range of motion. Neuro: Awake and alert, GCS 15, oriented to person, place, time, and situation. Cranial nerves II-XII grossly intact. Motor strength 5/5 in all extremities. Sensory grossly intact. Cerebellar exam normal. Normal gait. Psych: Awake, alert, with orientation to person, place and time. Behavior, mood, and affect are within normal limits. 16:34 Abdomen/GI: Inspection: abdomen appears normal, Bowel sounds: normal, Palpation: moderate abdominal tenderness, in the right lower quadrant, Indicators: McBurney's point is tender. Vital Signs: 16:30 BP 121 / 90; Pulse 72; Resp 18; Pulse Ox 100% on R/A; eh3 17:00 BP 114 / 70; Pulse 72; Resp 18; Pulse Ox 100% on R/A; eh3 MDM: 16:24 Patient medically screened. oliver 17:56 Differential diagnosis: appendicitis, diverticulitis, gastritis. Data reviewed: vital snw signs, nurses notes. Care significantly affected by the following chronic conditions: diverticulitis. Counseling: I had a detailed discussion with the patient and/or guardian regarding: the historical points, exam findings, and any diagnostic results supporting the discharge/admit diagnosis, lab results, radiology results, the need for outpatient follow up, to return to the emergency department if symptoms worsen or persist or if there are any questions or concerns that arise at home. Special discussion: Based on the patient's Hx, exam, and Dx evaluation, there is no indication for emergent surgery or inpatient Tx. It is understood by the patient/guardian that if the Sx's persist or worsen they need to return immediately for re-evaluation. Based on the history and exam findings, there is no indication for further emergent testing or inpatient evaluation. I discussed with the patient/guardian the need to see the primary care provider for further evaluation of the symptoms. 12/15 16:30 Order name: CBC with Diff [facility] 12/15 16:30 Order name: CMP [facility] 12/15 16:30 Order name: Lipase [facility] 12/15 16:30 Order name: Urine Microscopic Only [facility] 12/15 16:34 Order name: Urine Dipstick-Ancillary; Complete Time: 16:38 EDNC 12/15 16:37 Order name: Urine --Ancillary (enter results) 12/15 16:30 Order name: CT Abd/Pelvis - IV Contrast Only [facility] 12/15 17:13 Order name: CBC with Automated Diff; Complete Time: 17:14 EDNC 12/15 17:19 Order name: Urine Microscopic Only; Complete Time: 17:23 EDNC 12/15 17:28 Order name: Comprehensive Metabolic Panel; Complete Time: 17:36 EDNC 12/15 17:28 Order name: Lipase; Complete Time: 17:36 EDNC 12/15 17:40 Order name: CT; Complete Time: 17:40 EDNC 12/15 17:40 Order name: US Transvaginal Study (Probe) [facility] 12/15 18:35 Order name: US; Complete Time: 18:45 EDNC 12/15 16:30 Order name: IV Saline Lock; Complete Time: 17:02 [facility] 12/15 16:30 Order name: Labs collected and sent; Complete Time: 17:02 [facility] 12/15 16:30 Order name: Urine Dipstick-Ancillary (obtain specimen); Complete Time: 16:37 snw 12/15 16:30 Order name: Urine Test (obtain specimen); Complete Time: 16:37 snw Administered Medications: 14:00 Drug: TORadol - (ketorolac) 15 mg Route: IVP; Site: right antecubital; [facility] 17:00 Drug: NS 0.9% 1000 ml Route: IV; Rate: 1 bolus; Site: right antecubital; [facility] Disposition Summary: 12/15/22 18:48 Discharge Ordered Location: Home snw Condition: Stable snw Diagnosis - Constipation snw - Diverticulosis of large intestine without perforation or abscess without bleeding snw - Lower abdominal pain, unspecified snw Followup: snw - With: Emergency Department - When: As needed - Reason: Worsening of condition Followup: snw - With: Private Physician - When: 5 - 6 days - Reason: Recheck today's complaints, Continuance of care, Re-evaluation by your physician Discharge Instructions: - Discharge Summary Sheet snw - Constipation, Adult snw - Diverticulosis snw - Gas and Gas Pains, Pediatric snw Forms: - Medication Reconciliation Form snw - Thank You Letter snw - Antibiotic Education snw - Prescription Opioid Use snw Prescriptions: - Gas-X - take 240 milligram by ORAL route 3 times per day As needed; 1 box; Refills: 0, snw Product Selection Permitted - Miralax - take 17 gram by ORAL route 1-2 times daily; 1 Container; Refills: 0, Product snw Selection Permitted Signatures: Dispatcher [employer] EDFrank Velez MD MD cha Waters, Shelly, CATIA-C TOOL AND DIE REPAIR-Gloriaw Giovanny England PA PA jmm Hall, Erin, SOPHIE RN 3 Corrections: (The following items were deleted from the chart) 17:45 17:44 Allergies: No Known Allergies; [place] [id number] 17:45 17:44 Immunization history: Adult Immunizations up to date, [place] [id number] 17:45 17:44 Social history: Smoking status: Patient denies any tobacco usage or history of. 3 Patient uses alcohol, weekly. 3
[2022-12-15 19:24] VITALS: O2SAT 100
[2022-12-15 19:32] VITALS: BP 114/70
== END 2022-12-15 19:03 | disposition home or self-care (01) ==
LOC: ER 16:09
DX: K59.00 Constipation, unspecified (principal); K57.30 Diverticulosis of large intestine without perforation or abscess without bleeding; R55 Syncope and collapse
CPT/HCPCS: 85025; 36415; 81025; 83690; 80053; 74177; 76830; 96374; 99284; Q9967; J7030; 81003; 81015